=== PATIENT | female | born 1950 ===

== ENCOUNTER 2020-09-20 06:40 | Day surgery (SDC) | payer OTHER | END 2020-09-20 11:05 | disposition home or self-care (01) | LOC: AMB-ENDOS 06:40 | PROVIDERS: ATTEND Colon & Rectal Surgery | DX: K62.89 Other specified diseases of anus and rectum (principal); K64.1 Second degree hemorrhoids; Z12.11 Encounter for screening for malignant neoplasm of colon; Z20.822 Contact with and (suspected) exposure to COVID-19 ==

== ENCOUNTER 2021-01-22 06:30 | Day surgery (SDC) | payer OTHER ==
[~2021-01-22 06:30] MED LIST: ACID REDUCER20 M1 PO; ALENDRONATE SOD70 MG PO; COZAAR50 MG PO; HORIZANT600 MG PO; TOPROL XL50 M1 PO; VITAMIN B PO; VITAMIN C PO; VITAMIN D PO
== END 2021-01-22 11:00 | disposition home or self-care (01) ==
LOC: CIR.AMB 06:30 → EDBD 10:45 → CIR.AMB 11:00
PROVIDERS: ATTEND Colon & Rectal Surgery
DX: R15.9 Full incontinence of feces (principal); Z20.822 Contact with and (suspected) exposure to COVID-19
CPT/HCPCS: 64590; 64581; 95972; C1778; L8679

== ENCOUNTER 2021-11-12 05:52 | Day surgery (SDC) | payer OTHER | END 2021-11-12 10:50 | disposition home or self-care (01) | LOC: CIR.AMB 05:52 | PROVIDERS: ATTEND Colon & Rectal Surgery | DX: R15.9 Full incontinence of feces (principal); Z88.8 Allergy status to other drugs, medicaments and biological substances; Z20.822 Contact with and (suspected) exposure to COVID-19; I48.91 Unspecified atrial fibrillation; I10 Essential (primary) hypertension; Z87.891 Personal history of nicotine dependence | CPT/HCPCS: 64581; 95972; C1778 ==